=== PATIENT | male | born 1955 | race Caucasian/White ===

== ENCOUNTER → 2019-02-11 | Emergency (ER) | payer OTHER ==
[~2019-02-11] MED LIST: SEPTRA DS TABLE1 TAB PO
== END | disposition left against medical advice (07) ==
LOC: ER 17:41
DX: Z53.20 Procedure and treatment not carried out because of patient's decision for unspecified reasons (principal)

== ENCOUNTER → 2019-07-02 | Outpatient (CLI) | payer OTHER | END | disposition home or self-care (01) | LOC: RAD 14:24 | DX: M79.672 Pain in left foot (principal) ==

== ENCOUNTER 2020-02-23 08:40 | Outpatient (CLI) | payer OTHER | END 2020-02-23 08:43 | disposition home or self-care (01) | LOC: SONOGRAMA 08:40 | DX: K80.80 Other cholelithiasis without obstruction (principal) ==

== ENCOUNTER 2020-08-07 14:30 | Outpatient (CLI) | payer OTHER | END 2020-08-07 16:00 | disposition home or self-care (01) | LOC: OFIC 805 14:30 | PROVIDERS: ATTEND Otolaryngology Otology & Neurotology | DX: H93.13 Tinnitus, bilateral (principal); H90.3 Sensorineural hearing loss, bilateral; H61.23 Impacted cerumen, bilateral ==

== ENCOUNTER → 2020-09-29 | Outpatient (CLI) | payer OTHER | END | disposition home or self-care (01) | LOC: RAD 11:05 | PROVIDERS: ATTEND Specialist | DX: J45.998 Other asthma (principal) ==

== ENCOUNTER → 2020-10-25 | Outpatient (CLI) | payer OTHER | END | disposition home or self-care (01) | LOC: OFIC 805 10:45 | PROVIDERS: ATTEND Otolaryngology Otology & Neurotology | DX: H90.3 Sensorineural hearing loss, bilateral (principal); H93.A3 Pulsatile tinnitus, bilateral; H93.13 Tinnitus, bilateral; H61.22 Impacted cerumen, left ear ==

== ENCOUNTER 2021-02-09 07:13 | Outpatient (CLI) | payer OTHER | END 2021-02-09 07:34 | disposition home or self-care (01) | LOC: LAB 07:13 | DX: R97.20 Elevated prostate specific antigen [PSA] (principal) ==

== ENCOUNTER 2021-04-24 10:37 | Outpatient (CLI) | payer OTHER | END 2021-04-24 10:46 | disposition home or self-care (01) | LOC: SONOGRAMA 10:37 | PROVIDERS: ATTEND Specialist | DX: E03.9 Hypothyroidism, unspecified (principal) ==

== ENCOUNTER 2022-08-12 12:40 | Outpatient (CLI) | payer OTHER ==
[2022-08-13] MEDS ORDERED: CARVEDILOL25 M1 PO (12:04)
[2022-08-13] MEDS ORDERED: LOSARTAN POTAS100 MG PO (12:04)
[2022-08-13] MEDS ORDERED: AMLODIPINE BESYL5 MG (16:34)
== END 2022-08-12 12:47 | disposition home or self-care (01) ==
LOC: SONOGRAMA 12:40
PROVIDERS: ATTEND Specialist
DX: R17 Unspecified jaundice (principal); K83.1 Obstruction of bile duct

== ENCOUNTER 2022-08-13 11:26 | Inpatient (IN) | payer OTHER ==
[~2022-08-13] VITALS: Ht 172.7 cm; Wt 69.9 kg
[2022-08-13] MEDS ORDERED: LOSARTAN POTAS100 MG PO (12:04)
[2022-08-13] MEDS ORDERED: CARVEDILOL25 M1 PO (12:04)
--- NOTE | 2022-08-13 12:04 | NUR ---
PTE ALERTA Y ORIENTADO X3. PTE ES ADMITIDO POR DR. VONNIE GARCIA PARA REALIZAR OPERACION DE VISICULA.
--- NOTE | 2022-08-13 14:11 | NUR ---
SE LE ORIENTA A PACIENTE SOBRE LAS ORDENES MEDICAS, REFIERE ENTEDER LAS MISMAS. SE CANALIZA Y SE COLOCA LOS IVF'S, SE LE DEEPA LAS MUETRAS, SE LE ADMINISTRAN LOS MEDICAMENTOS Y SE NOTICA NPO ANNA LAS ORDENES MEDICAS.
[2022-08-13] MEDS ORDERED: AMLODIPINE BESYL5 MG (16:34)
== END 2022-08-26 21:45 | disposition home or self-care (01) | DRG 446 ==
LOC: ER 11:26 → SURG 15:41
PROVIDERS: ADMIT Specialist; ATTEND Specialist
PROC: 0FC98ZZ Extirpation of Matter from Common Bile Duct, Via Natural or Artificial Opening Endoscopic (ICD-10-PCS; principal; 2022-08-13)
PROC: 0F798ZZ Dilation of Common Bile Duct, Via Natural or Artificial Opening Endoscopic (ICD-10-PCS; 2022-08-13)
PROC: BF37ZZZ Magnetic Resonance Imaging (MRI) of Pancreas (ICD-10-PCS; 2022-08-13)
DX: K80.71 Calculus of gallbladder and bile duct without cholecystitis with obstruction (principal); Z20.822 Contact with and (suspected) exposure to COVID-19; E78.5 Hyperlipidemia, unspecified; I10 Essential (primary) hypertension

== ENCOUNTER 2022-10-12 18:00 | Emergency (ER) | payer OTHER ==
[~2022-10-12] VITALS: Ht 172.7 cm; Wt 65.8 kg
[~2022-10-12 18:00] MED LIST changes: +AMLODIPINE BESYL5 MG; +CARVEDILOL25 M1 PO; +LOSARTAN POTAS100 MG PO
== END 2022-10-12 22:29 | disposition home or self-care (01) ==
LOC: ER 18:00
DX: I10 Essential (primary) hypertension (principal); Z88.2 Allergy status to sulfonamides

== ENCOUNTER 2023-04-23 08:38 | Outpatient (CLI) | payer OTHER | END 2023-04-23 08:41 | disposition home or self-care (01) | LOC: SONOGRAMA 08:38 | PROVIDERS: ATTEND Internal Medicine Gastroenterology | DX: K80.20 Calculus of gallbladder without cholecystitis without obstruction (principal); K80.50 Calculus of bile duct without cholangitis or cholecystitis without obstruction ==

== ENCOUNTER 2023-10-15 07:40 | Outpatient (CLI) | payer OTHER | END 2023-10-15 07:45 | disposition home or self-care (01) | LOC: SONOGRAMA 07:40 | PROVIDERS: ATTEND Internal Medicine Gastroenterology | DX: K80.50 Calculus of bile duct without cholangitis or cholecystitis without obstruction (principal); K80.20 Calculus of gallbladder without cholecystitis without obstruction ==

== ENCOUNTER 2023-11-27 07:58 | Outpatient (CLI) | payer OTHER | END 2023-11-27 07:59 | disposition home or self-care (01) | LOC: NUCLEAR 07:58 | PROVIDERS: ATTEND Specialist | DX: I83.899 Varicose veins of unspecified lower extremity with other complications (principal) ==

== ENCOUNTER 2023-12-02 08:07 | Outpatient (CLI) | payer OTHER | END 2023-12-02 08:14 | disposition home or self-care (01) | LOC: RAD 08:07 | PROVIDERS: ATTEND Internal Medicine Cardiovascular Disease | DX: I11.9 Hypertensive heart disease without heart failure (principal) ==

== ENCOUNTER 2023-12-12 07:44 | Outpatient (CLI) | payer OTHER ==
[2023-12-18] MEDS ORDERED: AMLODIPINE-OLM1 EAC2 PO (10:52)
[2023-12-18] MEDS ORDERED: COZAAR100 MG PO (10:52)
== END 2023-12-12 07:45 | disposition home or self-care (01) ==
LOC: NUCLEAR 07:44
PROVIDERS: ATTEND Internal Medicine
DX: I11.9 Hypertensive heart disease without heart failure (principal)
CPT/HCPCS: 78452; 93017; A9500

== ENCOUNTER 2023-12-22 06:00 | Inpatient (IN) | payer OTHER ==
[~2023-12-22] VITALS: Ht 172.7 cm; Wt 72.6 kg
[~2023-12-22 06:00] MED LIST changes: +AMLODIPINE-OLM1 EAC2 PO; +COZAAR100 MG PO
[2023-12-22] MEDS ORDERED: CEFAZOLIN SODIUM 1,000 MG VIAL ONE (07:14)
[2023-12-22] MEDS ORDERED: CEFAZOLIN SODIUM 1,000 MG VIAL IV ONE (08:00)
[2023-12-22] MEDS ORDERED: MORPHINE SULFATE 4 MG/ML VIAL IV SCH (10:10)
[2023-12-22] MEDS ORDERED: hydrALAZINE HCL 20 MG VIAL ONE (11:56)
[2023-12-22] MEDS ORDERED: PIPERACILLIN/TAZOBACTAM SODIUM 3.375 GM VIAL IV SCH (12:00)
[2023-12-22] MEDS ORDERED: PIPERACILLIN/TAZOBACTAM SODIUM 3.375 GM VIAL IV ONE (12:28)
[2023-12-23 08:22] LABS: HEMATOCRIT 45.4 % (39.0-48.0); HEMOGLOBIN 15.5 g/dL (13-16.00); MEAN CELL VOLUME 86.7 fL (80.0-100.00); MEAN CORPUSCULAR HEMOGLOBIN 29.6 pg (27.00-32.0); MEAN CORPUSCULAR HGB CONC 34.2 g/dl (32.0-36.0); PLATELET COUNT 226 K/uL (150-450); RED BLOOD COUNT 5.24 M/uL (4.00-6.00); RED CELL DISTRIBUTION WIDTH 16.1 % (11.5-14.5)
[2023-12-23 08:46] LABS: ALBUMIN 3.4 gm/dL (3.4-5.0); BILIRUBIN TOTAL 2.6 mg/dL (0.3-1.2); CALCIUM 9.1 mg/dL (8.5-10.1); CREATININE SERUM 1.12 mg/dL (0.70-1.30); GFR 65.2; GLOBULINA 3.4 G/DL (2.4-3.5); POTASSIUM 3.53 mEq/L (3.5-5.1); TOTAL PROTEIN 6.8 gm/dL (6.4-8.2)
[2023-12-23] MEDS ORDERED: LOSARTAN POTASSIUM 100 MG TABLET PO SCH (12:28)
[2023-12-23] MEDS ORDERED: CARVEDILOL 25 MG TABLET PO SCH (12:28)
[2023-12-23] MEDS ORDERED: AMLODIPINE BESYLATE 5 MG TABLET PO SCH (12:28)
[2023-12-24 06:58] LABS: ALBUMIN 2.7 gm/dL (3.4-5.0); BILIRUBIN TOTAL 2.12 mg/dL (0.3-1.2); CALCIUM 8.9 mg/dL (8.5-10.1); CREATININE SERUM 1.31 mg/dL (0.70-1.30); GFR 54.41; POTASSIUM 3.36 mEq/L (3.5-5.1); TOTAL PROTEIN 5.7 gm/dL (6.4-8.2)
[2023-12-24] MEDS ORDERED: TAMSULOSIN HCL 0.4 MG CAP PO SCH (09:00)
== END 2023-12-24 20:14 | disposition home or self-care (01) | DRG 415 ==
LOC: CIR.AMB 06:00 → O/R 10:29 → SURH 10:29
PROVIDERS: ADMIT Surgery; ATTEND Surgery
PROC: 0DQE0ZZ Repair Large Intestine, Open Approach (ICD-10-PCS; 2023-12-22)
PROC: 0FJ44ZZ Inspection of Gallbladder, Percutaneous Endoscopic Approach (ICD-10-PCS; 2023-12-22)
PROC: 0FT40ZZ Resection of Gallbladder, Open Approach (ICD-10-PCS; principal; 2023-12-22 07:00)
DX: K80.01 Calculus of gallbladder with acute cholecystitis with obstruction (principal); K91.72 Accidental puncture and laceration of a digestive system organ or structure during other procedure; Z53.31 Laparoscopic surgical procedure converted to open procedure

== ENCOUNTER 2023-12-26 13:25 | Emergency (ER) | payer OTHER ==
[~2023-12-26] VITALS: Ht 172.7 cm; Wt 72.6 kg
[2023-12-26 18:34] LABS: URINE APPEARANCE Clear; URINE BACTERIA 16.3 uL (0.0-1933); URINE BILIRRUBIN Negative (NEGATIVE); URINE BLOOD Large; URINE COLOR Orange; URINE GLUCOSE Negative (NEGATIVE); URINE LEUKOCYTE Negative; URINE NITRATE Negative; URINE PROTEIN 30 (NEGATIVE); URINE UROBILINOGEN 0.2 E.U./dl; URINE WBC 10.6 uL (0.0-23.2)
[2023-12-26 18:39] LABS: URINE EPITHELIAL CELLS 0.9 uL (0.0-38.8)
== END 2023-12-26 19:38 | disposition home or self-care (01) ==
LOC: ER 13:25
PROVIDERS: General Practice
DX: R33.8 Other retention of urine (principal); I10 Essential (primary) hypertension; Z88.2 Allergy status to sulfonamides

== ENCOUNTER 2024-01-19 15:59 | Outpatient (CLI) | payer OTHER ==
[2024-01-19 16:39] LABS: INR 1.09; PARTIAL THROMBOPLASTIN TIME 29.9 SECONDS (22.0-34.0); PROTHROMBIN TIME 11.4 SECONDS (9.0-11.5)
== END 2024-01-19 16:03 | disposition home or self-care (01) ==
LOC: LAB 15:59
PROVIDERS: ATTEND Specialist
DX: D68.8 Other specified coagulation defects (principal)

== ENCOUNTER 2024-07-15 07:57 | Outpatient (CLI) | payer OTHER | END 2024-07-15 08:06 | disposition home or self-care (01) | LOC: SONOGRAMA 07:57 | PROVIDERS: ATTEND Internal Medicine Gastroenterology | DX: K80.20 Calculus of gallbladder without cholecystitis without obstruction (principal); R74.01 Elevation of levels of liver transaminase levels ==

== ENCOUNTER 2024-07-15 08:52 | Outpatient (CLI) | payer OTHER | END 2024-07-15 08:54 | disposition home or self-care (01) | LOC: NUCLEAR 08:52 | PROVIDERS: ATTEND Internal Medicine | DX: I34.0 Nonrheumatic mitral (valve) insufficiency (principal) ==

== ENCOUNTER 2025-09-07 07:04 | Outpatient (CLI) | payer OTHER | END 2025-09-07 07:21 | disposition home or self-care (01) | LOC: SONOGRAMA 07:04 | PROVIDERS: ATTEND Specialist | DX: K75.81 Nonalcoholic steatohepatitis (NASH) (principal) ==